=== PATIENT | male | born 1960 | race Caucasian/White ===

== ENCOUNTER 2016-12-24 14:27 | Observation (INO) | payer SELFPAY ==
[2016-12-24] MEDS ORDERED: Ondansetron 4 MG/2 ML SDV IVPUSH ONE (14:43)
[2016-12-24] MEDS ORDERED: HYDROmorphone 2 MG/ML Syringe IVPUSH ONE (14:43)
[2016-12-24] MEDS ORDERED: Sodium Chloride 0.9% 1,000 ML IV ONE (14:43)
--- NOTE | 2016-12-24 14:48 | EDM.PDOC ---
ED HPI GENERAL MEDICAL PROBLEM - General Chief Complaint: Abdominal Pain Stated Complaint: POSSIBLE C-DIFF Time Seen by Provider: 12/24/16 14:35 - History of Present Illness INITIAL COMMENTS - FREE TEXT/NARRATIVE: HISTORY AND PHYSICAL: History of present illness: Patient is a 56-year-old white male who presents with concern of abdominal pain nausea with recent hospital admission from the to the for Clostridium difficile enteritis he states he subsequently mistakenly was taking his metronidazole twice a day until recently when he noticed on the bottle that is 3 times daily. He states the pain and diarrhea have returned and are markedly worse. There's been no reported fever chills chest pain short of breath or other concerns Review of systems: As per history of present illness and below otherwise all systems reviewed and negative. Past medical history: As per history of present illness and as reviewed below otherwise noncontributory. Surgical history: As per history of present illness and as reviewed below otherwise noncontributory. Social history: No reported history of drug or alcohol abuse. Family history: As per history of present illness and as reviewed below otherwise noncontributory. Physical exam: HEENT: Atraumatic, normocephalic, pupils reactive, negative for conjunctival pallor or scleral icterus, mucous membranes dry, throat clear, neck supple, nontender, trachea midline. Lungs: Clear to auscultation, breath sounds equal bilaterally, chest nontender. Heart: S1S2, regular, negative for clicks, rubs, or JVD. Abdomen: Soft, nondistended, no localized pain. Negative for masses or hepatosplenomegaly. Negative for costovertebral tenderness. Pelvis: Stable nontender. Genitourinary: Deferred. Rectal: Deferred. Extremities: Atraumatic, negative for cords or calf pain. Neurovascular unremarkable. Neuro: Awake, alert, oriented. Cranial nerves II through XII unremarkable. Cerebellum unremarkable. Motor and sensory unremarkable throughout. Exam nonfocal. Diagnostics: CBC CMP lactic acid blood cultures x2 stool for C&S O&P and C. difficile CT abdomen and pelvis Therapeutics: Normal saline 1 L bolus Zofran 4 mg IV Dilaudid 1 mg IV Impression: #1 C. difficile enteritis #2 dehydration Definitive disposition and diagnosis as appropriate pending reevaluation and review of above. abdomen Pain Score (Numeric/FACES): 10 - Related Data Allergies Allergy/AdvReac Type Severity Reaction Status Date / Time Penicillins Allergy Anaphylactic Verified 12/24/16 14:34 Shock Home Meds: Home Meds Famotidine 20 mg PO DAILY 12/24/16 [History] Metronidazole [IJD: metroNIDAZOLE] 500 mg PO TID 12/24/16 [History] Social & Family History - Tobacco Use Years of Tobacco use: 23 - Alcohol Use Days Per Week of Alcohol Use: 4 Number of Drinks Per Day: 2 Total Drinks Per Week: 8 - Recreational Drug Use Recreational Drug Use: No ED ROS GENERAL - Review of Systems Review Of Systems: ROS reveals no pertinent complaints other than HPI. ED EXAM, GENERAL - Physical Exam Exam: See Below (See dictation) Course - Vital Signs Last Recorded V/S: Last Vital Signs Temp 36.9 C 12/24/16 14:38 Pulse 75 12/24/16 14:38 Resp 20 12/24/16 14:38 BP 140/87 12/24/16 14:38 Pulse Ox 98 12/24/16 14:38 - Orders/Labs/Meds Orders: Active Orders 24 hr Category Date Time Status Abdomen Pelvis wo Cont [CT] Stat Exams 12/24/16 14:43 Ordered CDIFF TOX A+B [OP] Stat Lab 12/24/16 14:48 Ordered CULTURE BLOOD [BC] Stat Lab 12/24/16 14:53 Received CULTURE BLOOD [BC] Stat Lab 12/24/16 15:00 Received CULTURE STOOL + CAMPY+SHIGATOX [RM] Stat Lab 12/24/16 14:42 Ordered Blood Culture x2 Reflex Set [OM.PC] Stat Oth 12/24/16 14:42 Ordered Labs: Laboratory Tests 12/24/16 12/24/16 12/24/16 Range/Units 14:53 14:53 14:53 WBC 9.00 (4.0-11.0) K/uL RBC 4.74 (4.50-5.90) M/uL Hgb 14.0 (13.0-17.0) g/dL Hct 41.6 (38.0-50.0) % MCV 87.8 (80.0-98.0) fL MCH 29.5 (27.0-32.0) pg MCHC 33.7 (31.0-37.0) g/dL RDW Std Deviation 47.3 (28.0-62.0) fl RDW Coeff of Kaur 15 (11.0-15.0) % Plt Count 262 (150-400) K/uL MPV 9.70 (7.40-12.00) fL Neut % (Auto) 64.4 (48.0-80.0) % Lymph % (Auto) 26.3 (16.0-40.0) % [place] % (Auto) 6.0 (0.0-15.0) % Eos % (Auto) 2.7 (0.0-7.0) % Baso % (Auto) 0.6 (0.0-1.5) % Neut # (Auto) 5.8 H (1.4-5.7) K/uL Lymph # (Auto) 2.4 (0.6-2.4) K/uL [place] # (Auto) 0.5 (0.0-0.8) K/uL Eos # (Auto) 0.2 (0.0-0.7) K/uL Baso # (Auto) 0.1 (0.0-0.1) K/uL Nucleated RBC % 0.0 /100WBC Nucleated RBCs # 0 K/uL INR 1.17 H (0.86-1.11) Lactate (0.20-2.00) mmol/L Sodium 143 (136-146) mmol/L Potassium 3.5 (3.5-5.1) mmol/L Chloride 107 (98-110) mmol/L Carbon Dioxide 26 (21-31) mmol/L BUN 14 (6.0-23.0) mg/dL Creatinine 0.7 (0.6-1.5) mg/dL Est Cr Clr Drug Dosing 115.03 mL/min Estimated GFR (MDRD) > 60.0 ml/min Glucose 94 (60-110) mg/dL Calcium 8.9 (8.8-10.8) mg/dL Total Bilirubin 0.3 (0.1-1.5) mg/dL AST 236 H (5-40) IU/L ALT 320 H (8-54) IU/L Alkaline Phosphatase 51 (40-150) Total Protein 6.5 (6.0-8.0) g/dL Albumin 3.6 (3.5-5.0) g/dL Globulin 2.9 (2.0-3.5) g/dL Albumin/Globulin Ratio 1.2 L (1.3-2.8) Amylase 80 (10-90) U/L Lipase 125 H (7-80) U/L Urine Color Urine Appearance Urine pH (5.0-8.0) Ur Specific [place] (1.001-1.035) Urine Protein (NEGATIVE) mg/dL Urine Glucose (UA) (NEGATIVE) mg/dL Urine Ketones (NEGATIVE) mg/dL Urine Occult Blood (NEGATIVE) Urine Nitrite (NEGATIVE) Urine Bilirubin (NEGATIVE) Urine Urobilinogen (<2.0) EU/dL Ur Leukocyte Esterase (NEGATIVE) Urine RBC (0-2/HPF) Urine WBC (0-5/HPF) Ur Epithelial Cells (NONE-FEW) Calcium Oxalate Crystal (NEGATIVE) Urine Bacteria (NEGATIVE) 12/24/16 12/24/16 Range/Units 14:53 15:20 WBC (4.0-11.0) K/uL RBC (4.50-5.90) M/uL Hgb (13.0-17.0) g/dL Hct (38.0-50.0) % MCV (80.0-98.0) fL MCH (27.0-32.0) pg MCHC (31.0-37.0) g/dL RDW Std Deviation (28.0-62.0) fl RDW Coeff of Kaur (11.0-15.0) % Plt Count (150-400) K/uL MPV (7.40-12.00) fL Neut % (Auto) (48.0-80.0) % Lymph % (Auto) (16.0-40.0) % [place] % (Auto) (0.0-15.0) % Eos % (Auto) (0.0-7.0) % Baso % (Auto) (0.0-1.5) % Neut # (Auto) (1.4-5.7) K/uL Lymph # (Auto) (0.6-2.4) K/uL [place] # (Auto) (0.0-0.8) K/uL Eos # (Auto) (0.0-0.7) K/uL Baso # (Auto) (0.0-0.1) K/uL Nucleated RBC % /100WBC Nucleated RBCs # K/uL INR (0.86-1.11) Lactate 2.3 H (0.20-2.00) mmol/L Sodium (136-146) mmol/L Potassium (3.5-5.1) mmol/L Chloride (98-110) mmol/L Carbon Dioxide (21-31) mmol/L BUN (6.0-23.0) mg/dL Creatinine (0.6-1.5) mg/dL Est Cr Clr Drug Dosing mL/min Estimated GFR (MDRD) ml/min Glucose (60-110) mg/dL Calcium (8.8-10.8) mg/dL Total Bilirubin (0.1-1.5) mg/dL AST (5-40) IU/L ALT (8-54) IU/L Alkaline Phosphatase (40-150) Total Protein (6.0-8.0) g/dL Albumin (3.5-5.0) g/dL Globulin (2.0-3.5) g/dL Albumin/Globulin Ratio (1.3-2.8) Amylase (10-90) U/L Lipase (7-80) U/L Urine Color YELLOW Urine Appearance CLEAR Urine pH 6.0 (5.0-8.0) Ur Specific [place] 1.020 (1.001-1.035) Urine Protein NEGATIVE (NEGATIVE) mg/dL Urine Glucose (UA) NEGATIVE (NEGATIVE) mg/dL Urine Ketones NEGATIVE (NEGATIVE) mg/dL Urine Occult Blood TRACE-INTACT (NEGATIVE) Urine Nitrite NEGATIVE (NEGATIVE) Urine Bilirubin NEGATIVE (NEGATIVE) Urine Urobilinogen 0.2 (<2.0) EU/dL Ur Leukocyte Esterase NEGATIVE (NEGATIVE) Urine RBC 2-5 (0-2/HPF) Urine WBC 0-1 (0-5/HPF) Ur Epithelial Cells RARE (NONE-FEW) Calcium Oxalate Crystal RARE (NEGATIVE) Urine Bacteria RARE (NEGATIVE) Meds: Medications Discontinued Medications Generic Name Dose Route Start Last Admin Trade Name Freq PRN Reason Stop Dose Admin Hydromorphone HCl 1 mg 12/24/16 14:43 12/24/16 15:09 Dilaudid IVPUSH 12/24/16 14:44 1 mg ONETIME ONE Administration Sodium Chloride 1,000 mls @ 999 mls/hr 12/24/16 14:43 12/24/16 15:07 Normal Saline IV 12/24/16 15:43 999 mls/hr STAT ONE Administration Ondansetron HCl 4 mg 12/24/16 14:43 12/24/16 15:06 Zofran IVPUSH 12/24/16 14:44 4 mg ONETIME ONE Administration Departure - Departure Time of Disposition: 14:47 Disposition: Admitted As Inpatient 64 Clinical Impression: Clostridium difficile enteritis, Abdominal pain Referrals: PCP,None [Primary Care Provider] - Forms: ED Department Discharge - My Orders Last 24 Hours: My Active Orders 12/24/16 14:42 CULTURE STOOL + CAMPY+SHIGATOX [RM] Stat Blood Culture x2 Reflex Set [OM.PC] Stat 12/24/16 14:43 Abdomen Pelvis wo Cont [CT] Stat 12/24/16 14:48 CDIFF TOX A+B [OP] Stat 12/24/16 14:53 CULTURE BLOOD [BC] Stat 12/24/16 15:00 CULTURE BLOOD [BC] Stat - Assessment/Plan Last 24 Hours: My Active Orders 12/24/16 14:42 CULTURE STOOL + CAMPY+SHIGATOX [RM] Stat Blood Culture x2 Reflex Set [OM.PC] Stat 12/24/16 14:43 Abdomen Pelvis wo Cont [CT] Stat 12/24/16 14:48 CDIFF TOX A+B [OP] Stat 12/24/16 14:53 CULTURE BLOOD [BC] Stat 12/24/16 15:00 CULTURE BLOOD [BC] Stat
[2016-12-24 15:29] LABS: CHLORIDE,CL 107 mmol/L (98-110); SODIUM,NA 143 mmol/L (136-146)
[2016-12-24] MEDS: HYDROmorphone 1 MG/ML Syringe IVPUSH PRN ×2 (17:25→21:37)
[2016-12-24] MEDS: Ondansetron 4 MG/2 ML SDV IVPUSH PRN (17:29)
[2016-12-24] MEDS: Sodium Chloride 0.9% 1,000 ML IV SCH (17:29)
[2016-12-24] MEDS: metroNIDAZOLE/Normal Saline 500 MG in Premix Bag 1 BAG IV SCH (17:29)
--- NOTE | 2016-12-24 19:25 | PCM.HP ---
H&P History of Present Illness - General Date of Service: 12/24/16 Admit Problem/Dx: Admission Diagnosis/Problem Admission Diagnosis/Problem Clostridium difficile infection Source of Information: Patient, Provider, RN - History of Present Illness Initial Comments - Free Text/Narative: He presented to the emergency department today with complaint of diarrhea and severe abdominal cramping. He Maritza Lloyd is feeling better. He states that about a week ago he was diagnosed with Clostridium difficile infection requiring hospitalization. He was discharged from the hospital after about 2 days. He's been taking Flagyl 500 mg twice a day as well as Pepcid his hospitalization occurred during a time when he was driving from [facility] to [place]. He resumed his trip after the hospitalization and flew from [place] to [place] and then to [place]. The last 2 days since arriving he developed increasing diarrhea and cramping again he has significant worsening of symptoms if he takes any dairy products by mouth. He states that he has chronic hepatitis B and hepatitis C. He reports that this is related to intravenous drug abuse for about 20 years ago. He plans to seek hepatology consultation within the next few months when he has insurance he does not drink alcohol he smokes cigarettes. He's not sure if she's had a fever but he felt chilled. abdomen Pain Score (Numeric/FACES): 8 - Related Data Allergies/Adverse Reactions: Allergies Allergy/AdvReac Type Severity Reaction Status Date / Time Penicillins Allergy Anaphylactic Verified 12/24/16 14:34 Shock Home Medications: Home Meds Famotidine 20 mg PO DAILY 12/24/16 [History] Metronidazole [IJD: metroNIDAZOLE] 500 mg PO TID 12/24/16 [History] Past Medical History - Past Health History Medical/Surgical History: Denies Medical/Surgical History Cardiovascular History: Denies: Afib, CAD, Heart Failure, [place], Pulmonary hypertension, Stents Respiratory History: Denies: Asthma, COPD, Cystic Fibrosis Gastrointestinal History: Reports: Other (see below) (Chronic hepatitis C and chronic hepatitis B). Denies: Cirrhosis Genitourinary History: Denies: Chronic renal insuffiency Musculoskeletal History: Reports: RA Neurological History: Denies: CVA, MS, Parkinson's Endocrine/Metabolic History: Denies: Diabetes, type I, Diabetes, type II Oncologic (Cancer) History: Reports: None - Infectious Disease History Infectious Disease History: Reports: C-difficile, Hepatitis C Social & Family History - Family History Family Medical History: Noncontributory - Tobacco Use Smoking Status *Q: Current Every Day Smoker Years of Tobacco use: 23 Packs/Tins Daily: 1 - Caffeine Use Caffeine Use: Reports: None - Alcohol Use Days Per Week of Alcohol Use: 4 Number of Drinks Per Day: 2 Total Drinks Per Week: 8 Alcohol Use in Last Twelve Months: No - Recreational Drug Use Recreational Drug Use: No H&P Review of Systems - Review of Systems: Review Of Systems: See Below General: Reports: chills, malaise, weakness. Denies: fever HEENT: Denies: sinus congestion, sore throat Pulmonary: Denies: Shortness of Breath, Cough, Sputum Gastrointestinal: Reports: Abdominal pain, Diarrhea, Nausea. Denies: Black stool, Bloody stool, Hematemesis, Hematochezia, Melena Genitourinary: Denies: dysuria, frequency, burning, hematuria, penile discharge Skin: Denies: jaundice Psychiatric: Denies: agitation Exam - Exam Exam: See Below - Vital Signs Vital Signs: Last Vital Signs Temp 98.5 F 12/24/16 14:38 Pulse 64 12/24/16 16:05 Resp 16 12/24/16 16:05 BP 118/64 12/24/16 16:05 Pulse Ox 97 12/24/16 16:05 Weight: 82 kg - Exam General: alert, oriented HEENT: EOMI, Mucosa moist & pink Neck: supple, trachea midline Lungs: Clear to auscultation, Normal respiratory effort Cardiovascular: regular rate, regular rhythm Abdomen: normal bowel sounds, soft. No: tenderness (Male) Exam: Deferred Rectal (Males) Exam: Deferred Extremities: No: edema Neurological: cranial nerves intact, normal speech - Patient Data Result Diagrams: 12/24/16 14:53 12/24/16 14:53 *Q Meaningful Use (ADM) - VTE *Q VTE Criteria *Q: - Stroke *Q Stroke Criteria *Q: - AMI *Q AMI Criteria *Q: - Problem List (1) Abdominal pain SNOMED Code(s): 31859814 ICD Code: R10.9 - UNSPECIFIED ABDOMINAL PAIN Status: Acute Current Visit : Yes Onset Date: 03/22/14 (2) Clostridium difficile enteritis SNOMED Code(s): 473266314, 011884385 ICD Code: A04.7 - ENTEROCOLITIS DUE TO CLOSTRIDIUM DIFFICILE Status: Acute Current Visit: Yes Problem List Initiated/Reviewed/Updated: Yes Orders Last 24hrs: Active Orders 24 hr Category Date Time Status Regular Diet [DIET] Diet 12/24/16 Dinner Active LACTIC ACID,WHOLE BLOOD [BG] Routine Lab 12/24/16 20:50 Ordered HYDROmorphone [Dilaudid] Med 12/24/16 17:00 Active 1 mg IVPUSH Q3H PRN Ondansetron [Zofran] Med 12/24/16 16:57 Active 4 mg IVPUSH Q4H PRN Sodium Chloride 0.9% [Normal Saline] 1,000 ml Med 12/24/16 17:15 Active IV ASDIRECTED metroNIDAZOLE/Normal Saline [Flagyl 500 MG in NS 100 ML Med 12/24/16 18:00 Active ] 500 mg Premix Bag 1 bag IV Q6H Medication Orders Hydromorphone HCl (Dilaudid) 1 mg IVPUSH Q3H PRN PRN Reason: Pain Last Admin: 12/24/16 17:25 Dose: 1 mg Metronidazole 500 mg/ Premix 100 mls @ 100 mls/hr IV Q6H [facility] Last Admin: 12/24/16 17:29 Dose: 100 mls/hr Sodium Chloride (Normal Saline) 1,000 mls @ 125 mls/hr IV ASDIRECTED KASIE Last Admin: 12/24/16 17:29 Dose: 125 mls/hr Ondansetron HCl (Zofran) 4 mg IVPUSH Q4H PRN PRN Reason: Nausea Last Admin: 12/24/16 17:29 Dose: 4 mg Assessment/Plan Comment:: Observation see orders
[2016-12-24] MEDS ORDERED: Nicotine 21 MG/24 Hr Patch TRDERM PRN (19:57)
[2016-12-24] MEDS: Famotidine 20 MG Tab PO SCH (21:36)
[2016-12-24] MEDS: Vancomycin 25 MG/ML Compounding Kit PO SCH (21:42)
[2016-12-25] MEDS: Vancomycin 25 MG/ML Compounding Kit PO SCH ×2 (00:55→05:51)
[2016-12-25] MEDS: HYDROmorphone 1 MG/ML Syringe IVPUSH PRN ×3 (00:55→08:19)
[2016-12-25] MEDS: Ondansetron 4 MG/2 ML SDV IVPUSH PRN ×2 (00:55→05:15)
[2016-12-25] MEDS: metroNIDAZOLE/Normal Saline 500 MG in Premix Bag 1 BAG IV SCH ×3 (00:56→13:14)
[2016-12-25] MEDS: Sodium Chloride 0.9% 1,000 ML IV SCH (04:12)
[2016-12-25 06:49] LABS: CHLORIDE,CL 108 mmol/L (98-110); SODIUM,NA 140 mmol/L (136-146)
[2016-12-25] MEDS ORDERED: Vancomycin 25 MG/ML Compounding Kit PO SCH (07:38)
[2016-12-25] MEDS: Famotidine 20 MG Tab PO SCH (08:19)
--- NOTE | 2016-12-25 09:57 | PCM.DCSUM1 ---
Discharge Summary - Hospital Course Brief History: This 56 year old male presented to the ED 12/24/16 with complaint of diarrhea and severe abdominal cramping. He is already feeling better. He states that about a week ago he was diagnosed with Clostridium difficile infection requiring hospitalization. He was discharged from the hospital after about 2 days. He's been taking Flagyl 500 mg twice a day as well as Pepcid his hospitalization occurred during a time when he was driving from [facility] to [place]. He resumed his trip after the hospitalization and flew from [place] to [place] and then to [place]. The last 2 days since arriving he developed increasing diarrhea and cramping again he has significant worsening of symptoms if he takes any dairy products by mouth. He states that he has chronic hepatitis B and hepatitis C. He reports that this is related to intravenous drug abuse for about 20 years ago. He plans to seek hepatology consultation within the next few months when he has insurance he does not drink alcohol. He smokes cigarettes. He's not sure if she's had a fever but he felt chilled. - Discharge Data Discharge Date: 12/25/16 Discharge Disposition: Home, Self-Care 01 Condition: Good - Patient Summary/Data Consults: Consultations 12/24/16 19:28 Consult to Pharmacy [CONS] Routine - Patient Instructions Diet: Regular Diet as Tolerated Activity: As Tolerated Driving: Do Not Drive (no driving while tkaing narcotics) Showering/Bathing: May Shower Notify Provider of: Fever, Increased Pain, Swelling and Redness, Drainage, Nausea and/or Vomiting - Discharge Plan Prescriptions/Med Rec: Bacillus Coagulans [Probiotic] 1 each PO DAILY #30 capsule. Ondansetron [Zofran ODT] 4 mg PO Q6H PRN #20 tab.dis PRN Reason: Nausea oxyCODONE 5 mg PO Q6H PRN #10 tablet PRN Reason: Pain Home Medications: Home Meds Famotidine 20 mg PO DAILY 12/24/16 [History] Metronidazole [IJD: metroNIDAZOLE] 500 mg PO TID 12/24/16 [History] Bacillus Coagulans [Probiotic] 1 each PO DAILY #30 capsule. 12/25/16 [Rx] Ondansetron [Zofran ODT] 4 mg PO Q6H PRN #20 tab.dis 12/25/16 [Rx] Vancomycin [First-Vancomycin 25 Compounding Kit] 125 mg PO QID #1 bottle [Rx] oxyCODONE 5 mg PO Q6H PRN #10 tablet 12/25/16 [Rx] Referrals: PCP,None [Primary Care Provider] - (arrange appoitnment with any PCP at [facility]) - Discharge Summary/Plan Comment DC Time >30 min.: No Discharge Summary/Plan Comment: Discharge Diagnoses: C diff diarrhea dehydration Tobacco use Hx of IV drug use Hepatitis C Hepatitis B Shahbaz was admitted for cdiff diarrhea and dehydration. He was taking prescribed Flagyl only BID, reports he was told wrong, prescription bottle states TID. He reported pain 10/10 on admission, now it is 6/10 intermittent cramping and squeezing, this is a tolerable number for him. He reports he is eating well, had only 1 BM, which is semi-formed, no longer watery in appearance. He was treated with Flagyl as well as Vancomycin PO. Eager for discharge today, encouraged good hand hygiene and personal hygiene. Encouraged to take a Probiotic 1 tab daily for gut health. We will send him home to finish his course of Flagly, but to take this TID along with Vancomycin 125 mg QID for 10 days total. I will send him with Zofran 4 mg ODT #15 PRN nausea and Oxycodone 5 mg Q6hr PO PRN Pain #10. no RF. He is to arrange follow up with PCP here in town. Return to ED or clinic if concerns should arise. - General Info Date of Service: 12/25/16 Admission Dx/Problem (Free Text: Admission Diagnosis/Problem Admission Diagnosis/Problem Clostridium difficile infection Subjective Update: Doing well this morning, was found smoking in bathroom. Educated this is not allowed. No longer having diarrhea, but now having semi-formed stools. Tolerating diet well and drinking plenty of fluids. Eager for discharge. Functional Status: Reports: pain controlled, tolerating diet, ambulating, urinating - Review of Systems General: Reports: No Symptoms. Denies: Fever HEENT: Reports: no symptoms. Denies: sinus congestion, sore throat, rhinitis Pulmonary: Reports: no symptoms. Denies: shortness of breath Cardiovascular: Reports: No Symptoms. Denies: Chest Pain, Palpitations, Edema Gastrointestinal: Reports: Abdominal pain (intermittently, cramping). Denies: Diarrhea, Nausea, Vomiting Genitourinary: Reports: no symptoms Musculoskeletal: Reports: no symptoms Skin: Reports: no symptoms Neurological: Reports: No Symptoms Psychiatric: Reports: no symptoms - Patient Data Vitals - Most Recent: Last Vital Signs Temp 97.8 F 12/25/16 08:00 Pulse 64 12/25/16 08:00 Resp 20 12/25/16 08:00 BP 112/82 12/25/16 08:00 Pulse Ox 95 12/25/16 08:00 Weight - Most Recent: 82 kg I&O - Last 24 hours: Intake & Output 12/24/16 12/25/16 12/25/16 22:59 06:59 14:59 Intake Total 100 1850 Output Total 2100 Balance 100 -250 Lab Results - Last 24 hrs: Laboratory Results - last 24 hr 12/24/16 12/25/16 12/25/16 Range/Units 20:38 05:25 05:25 WBC 6.42 (4.0-11.0) K/uL RBC 4.29 L (4.50-5.90) M/uL Hgb 12.6 L (13.0-17.0) g/dL Hct 38.1 (38.0-50.0) % MCV 88.8 (80.0-98.0) fL MCH 29.4 (27.0-32.0) pg MCHC 33.1 (31.0-37.0) g/dL RDW Std Deviation 48.3 (28.0-62.0) fl RDW Coeff of Kaur 15 (11.0-15.0) % Plt Count 227 (150-400) K/uL MPV 9.80 (7.40-12.00) fL Neut % (Auto) 55.6 (48.0-80.0) % Lymph % (Auto) 30.7 (16.0-40.0) % [place] % (Auto) 8.7 (0.0-15.0) % Eos % (Auto) 4.4 (0.0-7.0) % Baso % (Auto) 0.6 (0.0-1.5) % Neut # (Auto) 3.6 (1.4-5.7) K/uL Lymph # (Auto) 2.0 (0.6-2.4) K/uL [place] # (Auto) 0.6 (0.0-0.8) K/uL Eos # (Auto) 0.3 (0.0-0.7) K/uL Baso # (Auto) 0.0 (0.0-0.1) K/uL Nucleated RBC % 0.0 /100WBC Nucleated RBCs # 0 K/uL Lactate 1.1 (0.20-2.00) mmol/L Sodium 140 (136-146) mmol/L Potassium 4.1 (3.5-5.1) mmol/L Chloride 108 (98-110) mmol/L Carbon Dioxide 25 (21-31) mmol/L BUN 14 (6.0-23.0) mg/dL Creatinine 0.7 (0.6-1.5) mg/dL Est Cr Clr Drug Dosing 115.03 mL/min Estimated GFR (MDRD) > 60.0 ml/min Glucose 94 (60-110) mg/dL Calcium 8.3 L (8.8-10.8) mg/dL Magnesium 1.7 (1.5-2.3) mEq/L Total Bilirubin 0.4 (0.1-1.5) mg/dL AST 210 H (5-40) IU/L ALT 282 H (8-54) IU/L Alkaline Phosphatase 40 (40-150) Total Protein 5.6 L (6.0-8.0) g/dL Albumin 3.1 L (3.5-5.0) g/dL Globulin 2.5 (2.0-3.5) g/dL Albumin/Globulin Ratio 1.2 L (1.3-2.8) Med Orders - Current: Current Medications Famotidine (Pepcid) 20 mg PO BID KASIE Last Admin: 12/25/16 08:19 Dose: 20 mg Hydromorphone HCl (Dilaudid) 1 mg IVPUSH Q3H PRN PRN Reason: Pain Last Admin: 12/25/16 08:19 Dose: 1 mg Metronidazole 500 mg/ Premix 100 mls @ 100 mls/hr IV Q6H KASIE Last Admin: 12/25/16 05:14 Dose: 100 mls/hr Sodium Chloride (Normal Saline) 1,000 mls @ 125 mls/hr IV ASDIRECTED [facility] Last Admin: 12/25/16 04:12 Dose: 125 mls/hr Nicotine (Habitrol) 21 mg TRDERM DAILY PRN PRN Reason: Other Ondansetron HCl (Zofran) 4 mg IVPUSH Q4H PRN PRN Reason: Nausea Last Admin: 12/25/16 05:15 Dose: 4 mg Vancomycin HCl (First-Vancomycin 25 Compounding Kit) 125 mg PO QID [facility] Discontinued Medications Hydromorphone HCl (Dilaudid) 1 mg IVPUSH ONETIME ONE Stop: 12/24/16 14:44 Last Admin: 12/24/16 15:09 Dose: 1 mg Sodium Chloride (Normal Saline) 1,000 mls @ 999 mls/hr IV STAT ONE Stop: 12/24/16 15:43 Last Admin: 12/24/16 15:07 Dose: 999 mls/hr Ondansetron HCl (Zofran) 4 mg IVPUSH ONETIME ONE Stop: 12/24/16 14:44 Last Admin: 12/24/16 15:06 Dose: 4 mg Vancomycin HCl (First-Vancomycin 25 Compounding Kit) 500 mg PO QID [facility] Last Admin: 12/25/16 05:51 Dose: 20 ml - Exam General: Reports: alert, oriented, cooperative Lungs: Reports: Clear to auscultation, Normal respiratory effort Cardiovascular: Reports: Regular Rate, Regular Rhythm Abdomen: Reports: bowel sounds present, soft, no tenderness, no distension Extremities: Reports: no edema, normal pulses Psy/Mental Status: Reports: alert, normal affect, normal mood *Q Meaningful Use (DIS) - VTE *Q VTE Criteria *Q: - Stroke *Q Stroke Criteria *Q: - AMI *Q AMI Criteria *Q:
[2016-12-25] MEDS ORDERED: oxyCODONE 5 MG Tab PO PRN (10:04)
--- NOTE | 2016-12-25 10:59 | CT ---
EXAM DATE: 12/24/16 PATIENT'S AGE: 56 Patient: EDVIN BLUE Facility: [place], [place] Site . Site : 1960 Study: CT Abdomen/Pelvis [id number] 3:58:36 PM Ordering Physician: Belle Harris Final Report: HISTORY: Hepatitis. Abdominal pain. Comparison: 03/22/2014. Technique: Axial images were obtained through the abdomen and pelvis without contrast. Findings: Minimal atelectasis in the lung bases. The liver, spleen, pancreas, gallbladder , and adrenal glands are within normal. Bilateral renal stones. No hydronephrosis. The bowel is normal in caliber. Mildly prominent lymph nodes in the christianne hepatic region measuring up to 12 mm in short axis. Mild degenerative changes in the spine. Impression: 1. Renal stones. No hydronephrosis. 2. Prominent lymph nodes in the christianne hepatic region. Dictated by Zoey Ribeiro MD @ Dec 24 2016 4:06PM (Electronic Signature) Report Signed by Proxy and Original Signed Document filed in the Medical Record. [facility]
[2016-12-25 11:31] VITALS: BP 114/80
== END 2016-12-25 13:00 | disposition home or self-care (01) ==
LOC: MW.ED 14:27 → MW.MS 15:49 → INTOOBSV 15:49
PROVIDERS: ADMIT Family Medicine; ATTEND Family Medicine
DX: A04.7 Enterocolitis due to Clostridium difficile (principal); E86.0 Dehydration; Z88.0 Allergy status to penicillin; B19.10 Unspecified viral hepatitis B without hepatic coma; B19.20 Unspecified viral hepatitis C without hepatic coma; F17.200 Nicotine dependence, unspecified, uncomplicated
CPT/HCPCS: 36415; 74176; 80053; 81001; 82150; 83605; 83690; 83735; 85025; 85610; 87040; 87046; 87324; 87899; 96361; 96365; 96366; 96375; 96376; 99285; A9270; G0378; J1170; J2405; J7040; 96374; 99284

== ENCOUNTER 2017-01-08 19:01 | Emergency (ER) | payer SELFPAY ==
[2017-01-08] MEDS ORDERED: Sodium Chloride 0.9% 1,000 ML IV ONE (19:22)
[2017-01-08] MEDS ORDERED: Sodium Chloride 0.9% 2.5 ML Syringe FLUSH PRN (19:24)
[2017-01-08] MEDS ORDERED: Sodium Chloride 0.9% 10 ML Syringe FLUSH PRN (19:24)
[2017-01-08] MEDS ORDERED: HYDROmorphone 1 MG/ML Syringe IVPUSH ONE (19:30)
[2017-01-08] MEDS ORDERED: LORazepam 2 MG/ML MDV IVPUSH ONE (19:30)
--- NOTE | 2017-01-08 19:32 | EDM.PDOC ---
[id number] Pain Score (Numeric/FACES): 5 - Related Data Allergies Allergy/AdvReac Type Severity Reaction Status Date / Time Penicillins Allergy Anaphylactic Verified 01/08/17 19:16 Shock Home Meds: Home Meds Famotidine 20 mg PO DAILY 12/24/16 [History] Ondansetron [Zofran ODT] 4 mg PO Q6H PRN #20 tab.dis 12/25/16 [Rx] Hyoscyamine Sulfate [Levsin-Sl] 0.125 mg SL TID #18 tab.subl 01/08/17 [Rx] Ondansetron [Zofran ODT] 4 mg SL Q4H PRN #16 tab.dis 01/08/17 [Rx] Past Medical History - Past Health History Medical/Surgical History: Denies Medical/Surgical History Gastrointestinal History: Reports: Other (See Below) Other Gastrointestinal History: cdiff Musculoskeletal History: Reports: RA Oncologic (Cancer) History: Reports: None - Infectious Disease History Infectious Disease History: Reports: C-Difficile - Past Surgical History GI Surgical History: Reports: Appendectomy Musculoskeletal Surgical History: Reports: Other (See Below) Other Musculoskeletal Surgeries/Procedures:: "tendon replacement in left hand" Social & Family History - Family History Family Medical History: Noncontributory - Tobacco Use Smoking Status *Q: Current Every Day Smoker Years of Tobacco use: 20 Packs/Tins Daily: 0.5 Used Tobacco, but Quit: No Second Hand Smoke Exposure: Yes - Caffeine Use Caffeine Use: Reports: Other - Alcohol Use Days Per Week of Alcohol Use: 4 Number of Drinks Per Day: 2 Total Drinks Per Week: 8 - Recreational Drug Use Recreational Drug Use: No Drug Use in Last 12 Months: No Recreational Drug Type: Reports: Heroin Other Recreational Drug Type: Patient stated that he has used heroin in the past but said that it was many years ago. ED ROS GENERAL - Review of Systems Review Of Systems: See Below (History of present illness) ED EXAM, GI/ABD - Physical Exam Exam: See Below (History of present illness) Course - Vital Signs Last Recorded V/S: Last Vital Signs Temp 36.8 C 01/08/17 23:30 Pulse 80 01/08/17 23:30 Resp 16 01/08/17 23:30 BP 131/71 01/08/17 23:30 Pulse Ox 96 01/08/17 23:30 - Orders/Labs/Meds Labs: Laboratory Tests 01/08/17 01/08/17 01/08/17 Range/Units 19:43 19:43 22:25 WBC 7.90 (4.0-11.0) K/uL RBC 4.95 (4.50-5.90) M/uL Hgb 14.8 (13.0-17.0) g/dL Hct 42.9 (38.0-50.0) % MCV 86.7 (80.0-98.0) fL MCH 29.9 (27.0-32.0) pg MCHC 34.5 (31.0-37.0) g/dL RDW Std Deviation 44.8 (28.0-62.0) fl RDW Coeff of Kaur 14 (11.0-15.0) % Plt Count 267 (150-400) K/uL MPV 9.40 (7.40-12.00) fL Neut % (Auto) 65.6 (48.0-80.0) % Lymph % (Auto) 22.4 (16.0-40.0) % Hernando % (Auto) 9.4 (0.0-15.0) % Eos % (Auto) 2.3 (0.0-7.0) % Baso % (Auto) 0.3 (0.0-1.5) % Neut # (Auto) 5.2 (1.4-5.7) K/uL Lymph # (Auto) 1.8 (0.6-2.4) K/uL Hernando # (Auto) 0.7 (0.0-0.8) K/uL Eos # (Auto) 0.2 (0.0-0.7) K/uL Baso # (Auto) 0.0 (0.0-0.1) K/uL Nucleated RBC % 0.0 /100WBC Nucleated RBCs # 0 K/uL Sodium 140 (136-146) mmol/L Potassium 3.6 (3.5-5.1) mmol/L Chloride 107 (98-110) mmol/L Carbon Dioxide 22 (21-31) mmol/L BUN 7 (6.0-23.0) mg/dL Creatinine 0.7 (0.6-1.5) mg/dL Est Cr Clr Drug Dosing 115.03 mL/min Estimated GFR (MDRD) > 60.0 ml/min Glucose 106 (60-110) mg/dL Calcium 9.5 (8.8-10.8) mg/dL Total Bilirubin 0.5 (0.1-1.5) mg/dL AST 72 H (5-40) IU/L ALT 95 H (8-54) IU/L Alkaline Phosphatase 54 (40-150) Total Protein 7.3 (6.0-8.0) g/dL Albumin 3.9 (3.5-5.0) g/dL Globulin 3.4 (2.0-3.5) g/dL Albumin/Globulin Ratio 1.2 L (1.3-2.8) Lipase 57 (7-80) U/L Urine Color YELLOW Urine Appearance CLEAR Urine pH 7.5 (5.0-8.0) Ur Specific Webster 1.010 (1.001-1.035) Urine Protein NEGATIVE (NEGATIVE) mg/dL Urine Glucose (UA) NEGATIVE (NEGATIVE) mg/dL Urine Ketones NEGATIVE (NEGATIVE) mg/dL Urine Occult Blood NEGATIVE (NEGATIVE) Urine Nitrite NEGATIVE (NEGATIVE) Urine Bilirubin NEGATIVE (NEGATIVE) Urine Urobilinogen 0.2 (<2.0) EU/dL Ur Leukocyte Esterase NEGATIVE (NEGATIVE) Urine RBC 0-2 (0-2/HPF) Urine WBC 0-1 (0-5/HPF) Ur Epithelial Cells RARE (NONE-FEW) Calcium Oxalate Crystal FEW (NEGATIVE) Urine Bacteria RARE (NEGATIVE) Urine Mucus LIGHT (NONE-MOD) Meds: Medications Discontinued Medications Generic Name Dose Route Start Last Admin Trade Name Yenny PRN Reason Stop Dose Admin Ciprofloxacin 500 mg 01/08/17 23:06 01/09/17 04:07 Ciprofloxacin Hcl PO 01/08/17 23:07 Not Given ONETIME ONE Hydromorphone HCl 0.5 mg 01/08/17 19:30 01/08/17 19:44 Dilaudid IVPUSH 01/08/17 19:31 0.5 mg ONETIME ONE Administration Sodium Chloride 1,000 mls @ 999 mls/hr 01/08/17 19:22 01/08/17 19:43 Normal Saline IV 01/08/17 20:22 999 mls/hr .Bolus ONE Administration Iopamidol 100 ml 01/08/17 20:11 01/08/17 20:22 Isovue Multipack-370 (76%) IVPUSH 01/08/17 20:12 100 ml ONETIME STA Administration Lorazepam 1 mg 01/08/17 19:30 01/08/17 19:43 Ativan IVPUSH 01/08/17 19:31 1 mg ONETIME ONE Administration Metronidazole 500 mg 01/08/17 23:06 01/09/17 04:07 Metronidazole PO 01/08/17 23:07 Not Given ONETIME ONE Sodium Chloride 10 ml 01/08/17 19:24 01/08/17 19:48 Saline Flush FLUSH 10 ml ASDIRECTED PRN Administration Keep Vein Open Sodium Chloride 2.5 ml 01/08/17 19:24 01/08/17 19:48 Saline Flush FLUSH 2.5 ml ASDIRECTED PRN Administration Keep Vein Open Departure - Departure Time of Disposition: 23:10 Disposition: Home, Self-Care 01 Condition: Good Clinical Impression: Gastroenteritis, Abdominal pain, Renal calculus, left - Discharge Information Prescriptions: Hyoscyamine Sulfate [Levsin-Sl] 0.125 mg SL TID #18 tab.subl Ondansetron [Zofran ODT] 4 mg SL Q4H PRN #16 tab.dis PRN Reason: Nausea Instructions: Viral Gastroenteritis, Adult, [id number], Abdominal Pain, Adult , [id number] Referrals: PCP,None [Primary Care Provider] - Forms: ED Department Discharge Additional Instructions: You have gastroenteritis. This means vomiting and diarrhea usually as a result of a viral illness. Rest and drink plenty of fluids. Take Zofran under your tongue every 4 hours as needed for nausea and use Levsin under your tongue 3 times a day as needed for crampy abdominal pain. He can also take Tylenol if you find it necessary for discomfort. Follow up with your Dr. tomorrow and return immediately for new severe or worsening symptoms, specifically inability to keep down any fluids severe pain and especially worsening pain in the setting of fevers. ED HPI GI/ABDOMINAL - General Chief Complaint: Gastrointestinal Problem Stated Complaint: PT HAS STOMACH PAINS Time Seen by Provider: 01/08/17 19:20 Source of Information: Reports: Patient History Limitations: Reports: No Limitations - History of Present Illness INITIAL COMMENTS - FREE TEXT/NARRATIVE: HISTORY AND PHYSICAL: History of present illness: [48-year-old male with a history of C. difficile enteritis recently treated. Patient completed treatment with vancomycin and Flagyl. Now complains of diffuse abdominal pain. No vomiting the patient has some mild diarrhea] Abdominal pain sick in for evaluation. No fevers chills sweats or shaking chills. Pain is not worse with movement. Normal bladder habits. Review of systems: As per history of present illness and below otherwise all systems reviewed and negative. Past medical history: As per history of present illness and as reviewed below otherwise noncontributory. Surgical history: As per history of present illness and as reviewed below otherwise noncontributory. Social history: No reported history of drug or alcohol abuse. Family history: As per history of present illness and as reviewed below otherwise noncontributory. Physical exam: HEENT: Atraumatic, normocephalic, pupils reactive, negative for conjunctival pallor or scleral icterus, mucous membranes moist, throat clear, neck supple, nontender, trachea midline. Lungs: Clear to auscultation, breath sounds equal bilaterally, chest nontender. Heart: S1S2, regular, negative for clicks, rubs, or JVD. Abdomen: Soft, nondistended, diffuse tenderness no guarding or rebound Negative for masses or hepatosplenomegaly. Negative for costovertebral tenderness. Pelvis: Stable nontender. Genitourinary: Deferred. Rectal: Deferred. Extremities: Atraumatic, negative for cords or calf pain. Neurovascular unremarkable. Neuro: Awake, alert, oriented. Cranial nerves grossly unremarkable. Cerebellum unremarkable. Motor and sensory unremarkable throughout. Exam nonfocal. Diagnostics: [Labs and CT abdomen and pelvis with contrast pending] Therapeutics: [Pain medicine and anxiety lysis] Impression: [Abdominal pain] Plan: [Patient with abdominal pain recent C. difficile vital signs unremarkable afebrile. CT and full workup pending. Patient with clearly identifiable anxiety contributory component for this illness. Ativan given IV along with analgesia vital signs stable] Definitive disposition and diagnosis as appropriate pending reevaluation and review of above. - Related Data Allergies/ADRs: Allergies Allergy/AdvReac Type Severity Reaction Status Date / Time Penicillins Allergy Anaphylactic Verified 01/08/17 19:16 Shock Home Meds: Home Meds Famotidine 20 mg PO DAILY 12/24/16 [History] Ondansetron [Zofran ODT] 4 mg PO Q6H PRN #20 tab.dis 12/25/16 [Rx] Hyoscyamine Sulfate [Levsin-Sl] 0.125 mg SL TID #18 tab.subl 01/08/17 [Rx] Ondansetron [Zofran ODT] 4 mg SL Q4H PRN #16 tab.dis 01/08/17 [Rx] Departure - Departure Time of Disposition: 23:07 Disposition: Home, Self-Care 01 Condition: Good Clinical Impression: Gastroenteritis, Abdominal pain, Renal calculus, left Prescriptions: Hyoscyamine Sulfate [Levsin-Sl] 0.125 mg SL TID #18 tab.subl Ondansetron [Zofran ODT] 4 mg SL Q4H PRN #16 tab.dis PRN Reason: Nausea Instructions: Viral Gastroenteritis, Adult, [id number], Abdominal Pain, Adult , [id number] Referrals: PCP,None [Primary Care Provider] - Forms: ED Department Discharge Additional Instructions: You have gastroenteritis. This means vomiting and diarrhea usually as a result of a viral illness. Rest and drink plenty of fluids. Take Zofran under your tongue every 4 hours as needed for nausea and use Levsin under your tongue 3 times a day as needed for crampy abdominal pain. He can also take Tylenol if you find it necessary for discomfort. Follow up with your DrLaura tomorrow and return immediately for new severe or worsening symptoms, specifically inability to keep down any fluids severe pain and especially worsening pain in the setting of fevers.
[2017-01-08 20:06] LABS: CHLORIDE,CL 107 mmol/L (98-110); SODIUM,NA 140 mmol/L (136-146)
[2017-01-08] MEDS ORDERED: Iopamidol 755 MG/ML 500 ML Multipack Bottle IVPUSH STA (20:11)
[2017-01-08] MEDS ORDERED: Ciprofloxacin 500 MG Tab PO ONE (23:06)
[2017-01-08] MEDS ORDERED: metroNIDAZOLE 250 MG Tab PO ONE (23:06)
[2017-01-09 04:11] VITALS: BP 131/71
--- NOTE | 2017-01-09 12:32 | CT ---
EXAM DATE: 01/08/17 PATIENT'S AGE: 56 Patient: EDVIN BLUE Facility: [place], [place] Site . Site : 1960 Study: CT Abdomen/Pelvis [id number]/8/2017 8:32:51 PM Ordering Physician: Kel Harris Final Report: INDICATION: abd pain, C diff x24 hours HISTORY: Abdominal pain. C. difficile. COMPARISON: CT of the abdomen pelvis 12/24/2016, 03/22/2014. TECHNIQUE: CT of the abdomen and pelvis. 100 cc of Isovue-370 IV. Coronal/sagittal reconstruction images. FINDINGS: Lung bases: There is no pleural or pericardial effusion. The heart size is normal. The lung bases demonstrate dependent atelectasis. There is no basilar pneumothorax. Abdomen/pelvis: No solid hepatic mass. The hepatic morphology is normal. No inflammatory changes about the gallbladder. Spleen size is normal. No adrenal mass. Stable stone in the left intrarenal collecting system, which measures 6 mm on image 52 , series 201. Symmetric nephrograms. No perinephric fluid collection. No pancreatic mass or pancreatic duct dilation. Prostate and urinary bladder are within normal limits. There is no mucosal hyper enhancement within the small bowel or colon. There is fluid filled small bowel and colon, which may indicate a diarrheal illness. No abdominal aortic aneurysm. Visceral artery branches are patent. There is no abdominal or pelvic lymphadenopathy by size criteria. Nonenlarged lymph nodes within the christianne hepatis, described previously, are stable. The bone windows demonstrate no lytic or blastic bone lesions. Bridging osteophytes at the right SI joint. IMPRESSION: 1. Fluid-filled small bowel/colon. This may indicate a diarrheal illness, and is compatible with the history. No mucosal hyper enhancement or perienteric edema. 2. No transition point to indicate a mechanical small bowel or colonic obstruction. 3. Nonobstructive stone in the left intrarenal collecting system. Nephrograms are symmetric. No perinephric edema. Dictated by Kel Gasca MD @ 01/08/2017 8:51:58 PM Dictated by: Kel Gasca MD @ 01/08/2017 20:52:05 (Electronic Signature) Report Signed by Proxy. [facility]ENTERHattie
== END 2017-01-08 23:30 | disposition home or self-care (01) ==
LOC: MW.ED 19:01
DX: K52.9 Noninfective gastroenteritis and colitis, unspecified (principal); N20.0 Calculus of kidney; F17.210 Nicotine dependence, cigarettes, uncomplicated; Z88.0 Allergy status to penicillin; Z79.899 Other long term (current) drug therapy; Z90.49 Acquired absence of other specified parts of digestive tract
CPT/HCPCS: 36415; 74177; 80053; 81001; 83690; 85025; 87324; 96361; 96374; 96375; 99285; J1170; J2060; J7040; Q9967; 99284